=== PATIENT | female | born 1990 | race Caucasian/White ===

== ENCOUNTER → 2020-11-21 07:32 | Outpatient (CLI) | payer BC ==
[2020-05-09 12:23] VITALS: BMI 55.8
[~2020-11-21 07:32] MED LIST: OMEPRAZOLE20 M1; VOLTAREN75 MG PO
== END | disposition home or self-care (01) ==
LOC: D.NM 07:32
PROVIDERS: ATTEND Clinical Nurse Specialist Adult Health
DX: R10.11 Right upper quadrant pain (principal)